=== PATIENT | male | born 1980 | race Caucasian/White ===

== ENCOUNTER 2019-09-24 17:28 | Inpatient (IN) | payer SELFPAY, OTHER ==
[~2019-09-24 17:28] MED LIST: Iopamidol-370 76% 500 ML 1 ML ONE
[2019-09-24] MEDS ORDERED: Ketamine 50 MG/ML (10ML VIAL) ONE (17:44)
[2019-09-24] MEDS ORDERED: Fentanyl 100 MCG/2 ML VIAL ONE ×2 (17:54→19:24)
[2019-09-24 18:04] LABS: #Basophils 0.1 thou/uL (0.0-0.2); #Eosinphils 1.6 thou/uL (0.0-0.7); #Lymphocytes 2.7 thou/uL (1.20-3.40); #Monocytes 0.7 thou/uL (0.11-0.59); #Neutrophils 9.9 thou/uL (1.40-6.50); %Basophils 0.6 % (0.0-1.0); %Eosinophils 10.8 % (0.0-10.0); %Lymphocytes 17.9 % (21.0-51.0); %Monocytes 4.5 % (0.0-10.0); %Neutrophils 66.2 % (42.0-75.0); Hemoglobin 15.6 g/dL (14.0-18.0); Mean Corpuscular HGB CONC 33.2 g/dL (32.0-36.0); Mean Corpuscular Hemoglobin 29.1 pg (27.0-31.0); Mean Corpuscular Volume 87.9 fL (78.0-98.0); Mean Platelet Volume 7.6 fL (7.4-10.4); Platelet Count 339 thou/uL (130-400); RBC Distribution Width 11.7 % (11.5-14.5); Red Blood Cell (RBC) Count 5.36 mill/uL (4.70-6.10); White Blood Cell (WBC) Count 14.9 thou/uL (4.8-10.8)
[2019-09-24 18:09] LABS: PTT 27.6 sec (22.9-36.1)
[2019-09-24 18:10] LABS: Prothrombin Time 12.8 sec (12.0-14.7)
[2019-09-24 18:15] LABS: ALT (SGPT) 26 U/L (8-55); AST (SGOT) 27 U/L (5-34); Albumin 4.4 g/dL (3.5-5.0); Alkaline Phosphatase 69 U/L (40-110); Anion Gap 13 mmol/L (10-20); BUN (Urea Nitrogen) 14 mg/dL (8.9-20.6); Bilirubin, Total 0.7 mg/dL (0.2-1.2); Calc. Creatinine Clearance 0 mL/min (70-130); Calcium 9.7 mg/dL (7.8-10.44); Carbon Dioxide 22 mmol/L (22-29); Chloride 105 mmol/L (98-107); Estimated GFR-MDRD 74; Glucose 108 mg/dL (70-105); Lipase 22 U/L (8-78); Protein, Total 7.4 g/dL (6.0-8.3); Sodium 136 mmol/L (136-145)
--- NOTE | 2019-09-24 18:19 | RAD ---
SINGLE VIEW OF THE CHEST: 09/24/19 COMPARISON: None. HISTORY: Shortness of breath and chest pain. FINDINGS: Single view of the chest shows a normal sized cardiomediastinal silhouette. There is no evidence of c onsolidation, mass, or pleural effusion. The bones are unremarkable. IMPRESSION: No evidence of acute cardiopulmonary disease. POS: EAA
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
[2019-09-24 18:29] LABS: Acetaminophen Less than 6.0 mcg/mL (10.0-30.0); Alcohol Less than 10 mg/dL (Less than 10); Salicylate Less than 8.0 mg/dL (15.0-30.0)
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
[2019-09-24] MEDS ORDERED: Adacel (T-DAP) 0.5 ML SYRINGE ONE (19:09)
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
--- NOTE | 2019-09-24 19:40 | RAD ---
Left wrist 3 views HISTORY: Injury. Findings extensively comminuted mildly impacted intra-articular fracture of the distal radius is pres ent with posterior displacement of the proximal carpal row in relation to the major distal radial fragments. Mildly distracted fracture of the ulnar styloid is also present. There are osteoarthritic changes at the first carpometacarpal joint. IMPRESSION : Extensive fracture posterior dislocation left wrist.
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
[2019-09-24] MEDS ORDERED: HYDROmorphone 0.5 MG/0.5 ML SYRINGE ONE (20:07)
[2019-09-24] MEDS ORDERED: Dextrose 5% in Water 1,000 ML IV PRN (21:18)
[2019-09-24] MEDS ORDERED: Morphine 4 MG/ML VIAL SLOW IVP PRN (21:18)
[2019-09-24] MEDS ORDERED: Ondansetron PF 4 MG/2 ML Vial IVP PRN (21:18)
[2019-09-24] MEDS ORDERED: Dextrose 50% Abboject 50 ML SYRINGE SLOW IVP PRN (21:18)
[2019-09-24] MEDS ORDERED: Cyclobenzaprine 10 MG TAB PO PRN (21:21)
--- NOTE | 2019-09-24 21:26 | RAD ---
Left wrist 3 views HISTORY: Fracture. COMPARISON: Earlier exam on the same date FINDINGS: Overlying fiberglass splint now in place. There has been partial reduction of the posterior dislocation at the wrist. Lateral displacement of the proximal carpal row in relation to the distal radius has increased, however. There is now 4 mm step-off and 4 mm gap at the dominant intra-a rticular fracture plane at the base of the radial styloid. Other findings are stable.
--- NOTE | 2019-09-24 22:22 | CT ---
CT left wrist noncontrast HISTORY: Fracture. FINDINGS: Extensively comminuted fracture of the distal radius is present including 2 major intra-art icular fracture. At the base of the radial styloid is an intra-articular plane with 0.7 cm gap and 0.2 cm step-off. Oblique nondisplaced fracture plane also extends to the posterior medial articular s urface. Small surrounding comminuted fracture fragments are present. Scaphoid waist is intact. There is mild displacement of a comminuted ulnar styloid avulsion fracture. Alignment of the proximal carpal row with the distal radius is now anatomic. IMPRESSION : Interval reduction of the dislocation at the wrist. Alignment of fracture planes improved significant ly since the most recent radiographic exam.
--- NOTE | 2019-09-24 22:23 | RAD ---
Left wrist 2 views HISTORY: Fracture/dislocation. COMPARISON: Earlier exam on the same date. FINDINGS: Alignment at the radiocarpal joint is now anatomic. Minimal displacement remains at the com minuted intra-articular distal radial fracture. Some degree of impaction and dorsal tilt remain. Overlying fiberglass splint remains in place. IMPRESSION : Interval reduction of the displacement/dislocation of the left wrist fracture.
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
[2019-09-25] MEDS: Acetaminophen 500 MG TAB PO SCH ×5 (01:30→23:57)
[2019-09-25] MEDS: Sodium Chloride 0.9% 1,000 ML IV SCH ×4 (01:32→20:45)
[2019-09-25] MEDS: traMADol HCl 50 MG TAB PO SCH ×2 (01:46→07:03)
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
[2019-09-25] MEDS ORDERED: traMADol HCl 50 MG TAB ONE (03:02)
[2019-09-25] MEDS ORDERED: Acetaminophen 500 MG TAB ONE (03:02)
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
[2019-09-25] MEDS ORDERED: Morphine 4 MG/ML VIAL ONE (06:41)
[2019-09-25 07:50] LABS: Anion Gap 10 mmol/L (10-20); BUN (Urea Nitrogen) 17 mg/dL (8.9-20.6); Calc. Creatinine Clearance 0 mL/min (70-130); Calcium 8.6 mg/dL (7.8-10.44); Carbon Dioxide 26 mmol/L (22-29); Chloride 106 mmol/L (98-107); Estimated GFR-MDRD 82; Glucose 118 mg/dL (70-105); Magnesium 2.1 mg/dL (1.6-2.6); Potassium 4.6 mmol/L (3.5-5.1); Sodium 137 mmol/L (136-145)
[2019-09-25 08:07] LABS: #Eosinphils 0.3 thou/uL (0.0-0.7); #Lymphocytes 2.4 thou/uL (1.20-3.40); #Monocytes 0.9 thou/uL (0.11-0.59); #Neutrophils 6.5 thou/uL (1.40-6.50); %Basophils 0.2 % (0.0-1.0); %Eosinophils 3.1 % (0.0-10.0); %Lymphocytes 23.3 % (21.0-51.0); %Neutrophils 64.4 % (42.0-75.0); Hemoglobin 11.1 g/dL (14.0-18.0); Mean Corpuscular HGB CONC 31.9 g/dL (32.0-36.0); Mean Corpuscular Hemoglobin 28.8 pg (27.0-31.0); Mean Corpuscular Volume 90.5 fL (78.0-98.0); Mean Platelet Volume 7.7 fL (7.4-10.4); Platelet Count 312 thou/uL (130-400); RBC Distribution Width 11.7 % (11.5-14.5); Red Blood Cell (RBC) Count 3.85 mill/uL (4.70-6.10); White Blood Cell (WBC) Count 10.2 thou/uL (4.8-10.8)
--- NOTE | 2019-09-25 08:58 | RAD ---
EXAM: 2 views of the left humerus HISTORY: left arm pain COMPARISON: None FINDINGS: 2 views of the left humerus shows a fracture of the midportion of the humerus which is mild ly displaced. No degenerative changes are seen. Mild soft tissue swelling is present. IMPRESSION: Mid left humeral fracture
[2019-09-25] MEDS: Famotidine/PF 20 mg/2ml Vial SLOW IVP SCH ×2 (09:25→20:39)
[2019-09-25] MEDS ORDERED: Famotidine/PF 20 mg/2ml Vial ONE (09:27)
[2019-09-25] MEDS ORDERED: Ondansetron PF 4 MG/2 ML Vial ONE (10:35)
[2019-09-25] MEDS ORDERED: diphenhydrAMINE 50 MG/ML VIAL IVP PRN (11:04)
[2019-09-25] MEDS ORDERED: HYDROmorphone 10 mg/100 ml CADD IVPB PRN (11:04)
[2019-09-25] MEDS ORDERED: diphenhydrAMINE 25 MG CAP PO PRN (11:04)
[2019-09-25] MEDS ORDERED: Promethazine HCl 25 MG/ML VIAL IM PRN (11:04)
[2019-09-25] MEDS ORDERED: Naloxone HCl 0.4 mg/ml Vial IV PRN (11:04)
[2019-09-25] MEDS ORDERED: Ondansetron PF 4 MG/2 ML Vial IVP PRN (11:04)
[2019-09-25] MEDS ORDERED: diphenhydrAMINE 50 MG/ML VIAL IM PRN (11:04)
[2019-09-25] MEDS ORDERED: Communication Order-Pharmacy FS SCH (11:15)
[2019-09-25] MEDS: Polyethylene Glycol 3350 17 GM Packet PO SCH (12:35)
[2019-09-25] MEDS: Gabapentin 300 MG CAP PO SCH ×3 (12:36→20:38)
[2019-09-25] MEDS: Senokot S 8.6-50 MG TAB PO SCH ×2 (12:37→20:39)
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
[2019-09-25 15:22] VITALS: BMI 29.1
[2019-09-25 23:24] LABS: Bacteria/HPF None Seen HPF (None Seen); Bilirubin Negative (Negative); Blood, Urine Trace (Negative); Clarity Clear (Clear); Glucose, Urine (Dipstick) Normal (Negative); Ketone, Urine Trace mg/dL (Negative); Leukocyte Negative Leu/uL (Negative); Nitrite Negative (Negative); Protein, Urine (Dipstick) 30 mg/dL (Neg-Trace); Squamous Epithelial None Seen HPF (0-3); Urobilinogen Normal mg/dL (Less than 2)
[2019-09-25 23:25] LABS: Specific Gravity, Urine 1.047 (1.002-1.036)
[2019-09-25 23:26] LABS: Urine Culture Reflex Yes Yes
[2019-09-25 23:28] LABS: Amphetamine Detected (NotDetected); Medtox Reader # READER 4; Methamphetamine Detected (NotDetected); Opiate Screen Detected (NotDetected)
[2019-09-25 23:29] LABS: Barbiturates Screen Not Detected (NotDetected); Benzodiazepine Screen Not Detected (NotDetected); Cocaine Metabolite Screen Not Detected (NotDetected); Medtox Control Line Valid? VALID (VALID); Methadone Not Detected (NotDetected); Oxycodone Screen Not Detected (NotDetected); Phencyclidine (PCP) Not Detected (NotDetected); THC/Cannabinoid Screen Not Detected (NotDetected); Tricyclic Screen Not Detected (NotDetected)
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
[2019-09-26] MEDS: Acetaminophen 500 MG TAB PO SCH ×4 (05:33→23:15)
[2019-09-26] MEDS: Sodium Chloride 0.9% 1,000 ML IV SCH ×2 (05:37→17:36)
[2019-09-26 05:50] LABS: #Basophils 0.1 thou/uL (0.0-0.2); #Eosinphils 1.3 thou/uL (0.0-0.7); #Monocytes 0.7 thou/uL (0.11-0.59); %Basophils 0.9 % (0.0-1.0); %Eosinophils 12.6 % (0.0-10.0); %Lymphocytes 20.3 % (21.0-51.0); %Monocytes 6.8 % (0.0-10.0); %Neutrophils 59.5 % (42.0-75.0); Mean Corpuscular HGB CONC 32.7 g/dL (32.0-36.0); Mean Corpuscular Hemoglobin 29.8 pg (27.0-31.0); Mean Corpuscular Volume 91.3 fL (78.0-98.0); Mean Platelet Volume 7.4 fL (7.4-10.4); Platelet Count 244 thou/uL (130-400); RBC Distribution Width 11.6 % (11.5-14.5)
[2019-09-26 06:20] LABS: Anion Gap 12 mmol/L (10-20); BUN (Urea Nitrogen) 15 mg/dL (8.9-20.6); Calc. Creatinine Clearance 159 mL/min (70-130); Carbon Dioxide 21 mmol/L (22-29); Chloride 106 mmol/L (98-107); Estimated GFR-MDRD Greater than 90; Glucose 120 mg/dL (70-105); Magnesium 1.8 mg/dL (1.6-2.6); Phosphorus 2.2 mg/dL (2.3-4.7); Potassium 4.3 mmol/L (3.5-5.1); Sodium 135 mmol/L (136-145)
[2019-09-26] MEDS ORDERED: Fentanyl 100 MCG/2 ML VIAL ONE ×3 (07:40→14:15)
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
[2019-09-26] MEDS ORDERED: Ketorolac Tromethamine 30 MG/ML VIAL ONE (09:52)
[2019-09-26] MEDS ORDERED: Glycopyrrolate 0.2 MG/ML 5 ML SYRINGE ONE (09:52)
[2019-09-26] MEDS ORDERED: PHENYLEPHRINE-NS 100 MCG/ML 10 ML SYRINGE ONE (09:52)
[2019-09-26] MEDS ORDERED: PROPOFOL 200 MG/20 ML VIAL ONE (09:52)
[2019-09-26] MEDS ORDERED: Lidocaine 1% PF 5 ML VIAL ONE (09:52)
[2019-09-26] MEDS ORDERED: Ondansetron PF 4 MG/2 ML Vial ONE (09:52)
[2019-09-26] MEDS ORDERED: Rocuronium Bromide 10 MG/ML (10ML VIAL) ONE (09:52)
[2019-09-26] MEDS: Polyethylene Glycol 3350 17 GM Packet PO SCH (10:49)
[2019-09-26] MEDS: Famotidine/PF 20 mg/2ml Vial SLOW IVP SCH ×2 (10:49→20:36)
[2019-09-26] MEDS: Gabapentin 300 MG CAP PO SCH ×3 (10:49→20:36)
[2019-09-26] MEDS: Senokot S 8.6-50 MG TAB PO SCH ×2 (10:50→20:36)
[2019-09-26] MEDS ORDERED: Bupivacaine HCl 0.5%/Epinephrine 1:200,000/PF 30 ml Vial ONE (12:09)
[2019-09-26] MEDS ORDERED: Bupivacaine PF 0.5% 30 ML VIAL ONE (12:11)
[2019-09-26 12:24] LABS: SARS-CoV-2 MS2 Positive; SARS-CoV-2 N Gene Negative; SARS-CoV-2 S Gene Negative; SARS-CoV-2 orf1ab Negative
[2019-09-26] MEDS ORDERED: Bacitracin Zinc Ointment 30 gm TUBE ONE (12:35)
--- NOTE | 2019-09-26 14:03 | RAD ---
EXAM: 2 views of the left humerus HISTORY: left arm pain COMPARISON: None FINDINGS/IMPRESSION: 2 views of the left humerus shows the patient is status post ORIF of the humerus fracture with a plate and screws. No perihardware lucency is seen.
--- NOTE | 2019-09-26 14:05 | RAD ---
EXAM: 2views of the left wrist HISTORY: Distal radius fracture COMPARISON: 09/24/2019 FINDINGS/IMPRESSION: 2 limited intraoperative fluoroscopic views of the left wrist shows the patient is status post screw fixation of the distal radius fracture. An ulnar styloid fracture is seen. There is normal alignment of the radiocarpal joint.
[2019-09-26] MEDS ORDERED: traMADol HCl 50 MG TAB PO PRN (15:11)
[2019-09-26] MEDS ORDERED: Milk Of Magnesia 30 ML UDCUP PO PRN (15:11)
[2019-09-26] MEDS ORDERED: Morphine 4 MG/ML VIAL SLOW IVP PRN (15:11)
[2019-09-26] MEDS ORDERED: Acetaminophen 325 MG TAB PO PRN (15:11)
[2019-09-26] MEDS ORDERED: HYDROcodone/Acetaminophen 10/325 mg Tablet PO PRN (15:11)
[2019-09-26] MEDS ORDERED: Promethazine HCl 25 MG/ML VIAL IM PRN (15:11)
[2019-09-26] MEDS ORDERED: Ondansetron PF 4 MG/2 ML Vial IV PRN (15:11)
[2019-09-26] MEDS ORDERED: Bisacodyl 10 MG SUPP PR PRN (15:11)
[2019-09-26] MEDS ORDERED: Ketorolac Tromethamine 30 MG/ML VIAL IVP PRN (15:13)
[2019-09-26] MEDS ORDERED: Meperidine HCl/PF 25 MG/ML VIAL IM PRN (15:13)
[2019-09-26] MEDS ORDERED: Labetalol HCl 100 MG/20 ML VIAL ONE (15:27)
[2019-09-26] MEDS ORDERED: Labetalol HCl 100 MG/20 ML VIAL IVPB SCH (15:45)
[2019-09-26] MEDS: Vancomycin HCl 1.75 GM in Sodium Chloride 0.9% 500 ML IVPB SCH (17:36)
[2019-09-26] MEDS: CEFAZOLIN 2 GM in Premix Bag 1 BAG IVPB SCH ×2 (17:36→23:15)
[2019-09-26] MEDS: hydrALAZINE 20 MG/ML VIAL SLOW IVP PRN (20:44)
[2019-09-26] MEDS ORDERED: Aspirin 81 mg Enteric Coated Tablet PO SCH (21:00)
[2019-09-26] MEDS ORDERED: Vancomycin 1 GM in Premix Bag 1 BAG IVPB SCH (21:00)
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
[2019-09-27] MEDS: Vancomycin HCl 1.75 GM in Sodium Chloride 0.9% 500 ML IVPB SCH ×2 (03:27→17:37)
[2019-09-27] MEDS: Acetaminophen 500 MG TAB PO SCH ×4 (05:28→23:16)
[2019-09-27 06:12] LABS: #Eosinphils 0.6 thou/uL (0.0-0.7); #Lymphocytes 1.7 thou/uL (1.20-3.40); #Monocytes 0.7 thou/uL (0.11-0.59); #Neutrophils 6.9 thou/uL (1.40-6.50); %Basophils 0.2 % (0.0-1.0); %Eosinophils 6.2 % (0.0-10.0); %Lymphocytes 17.3 % (21.0-51.0); %Monocytes 6.8 % (0.0-10.0); %Neutrophils 69.4 % (42.0-75.0); Hemoglobin 7.2 g/dL (14.0-18.0); Mean Corpuscular HGB CONC 32.7 g/dL (32.0-36.0); Mean Corpuscular Hemoglobin 29.8 pg (27.0-31.0); Mean Corpuscular Volume 91.1 fL (78.0-98.0); Mean Platelet Volume 7.3 fL (7.4-10.4); Platelet Count 231 thou/uL (130-400); RBC Distribution Width 11.6 % (11.5-14.5); Red Blood Cell (RBC) Count 2.41 mill/uL (4.70-6.10)
[2019-09-27 06:30] LABS: Anion Gap 9 mmol/L (10-20); BUN (Urea Nitrogen) 9 mg/dL (8.9-20.6); Calc. Creatinine Clearance 161 mL/min (70-130); Calcium 7.8 mg/dL (7.8-10.44); Carbon Dioxide 27 mmol/L (22-29); Chloride 102 mmol/L (98-107); Estimated GFR-MDRD Greater than 90; Glucose 136 mg/dL (70-105); Magnesium 1.8 mg/dL (1.6-2.6); Phosphorus 2.3 mg/dL (2.3-4.7); Potassium 3.9 mmol/L (3.5-5.1); Sodium 134 mmol/L (136-145)
[2019-09-27] MEDS ORDERED: Sodium Phosphate 30 MMOL in Sodium Chloride 0.9% 250 ML 250 ML IVPB SCH (07:15)
[2019-09-27] MEDS ORDERED: Magnesium 2 GM/50 ML 2 GM in Premix Bag 1 BAG IVPB SCH (07:15)
[2019-09-27] MEDS: Gabapentin 300 MG CAP PO SCH ×3 (08:00→20:38)
[2019-09-27] MEDS: Senokot S 8.6-50 MG TAB PO SCH ×2 (08:00→20:38)
[2019-09-27] MEDS: Famotidine/PF 20 mg/2ml Vial SLOW IVP SCH (08:00)
[2019-09-27] MEDS: Polyethylene Glycol 3350 17 GM Packet PO SCH (08:01)
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
[2019-09-27] MEDS: traMADol HCl 50 MG TAB PO SCH ×3 (12:12→23:16)
--- NOTE | 2019-09-27 12:34 | OP ---
DATE OF PROCEDURE: 09/26/2019 PREOPERATIVE DIAGNOSES: Displaced three-part distal radius fracture with half of the dorsal fragment involving the [place]'s tubercle and another displaced radial styloid fragment. 1. Some comminution with the dorsal fragment creating challenge for articular congruity. 2. Displaced ulnar radial styloid fracture. 3. No evidence of scapholunate ligament tear, clinically or radiographically. 4. Ulnar styloid fracture with type 1 with partial avulsion only. PROCEDURES PERFORMED: 1. Closed treatment of ulnar styloid fracture. 2. Open reduction and internal fixation of left distal radius fracture. 3. Open treatment of radiocarpal dislocation. 4. Bone graft, major. 5. C-arm supervision. TOURNIQUET TIME: 100 minutes. ESTIMATED BLOOD LOSS: 15 mL. FINDINGS: Three-part fracture with the dislocation already partially treated, but anatomically reduced now. DESCRIPTION OF PROCEDURE: After successful general endotracheal anesthesia and after Dr. Lynn performed ORIF of the humerus, the patient had a dressing applied to the arm, was re-prepped and draped and a sterile tourniquet was applied high in the forearm for this procedure. It was well padded. We then outlined the dorsal incision, which had a zigzag with a large zag towards the radial styloid knowing that it would need internal fixation. We then inflated the tourniquet after exsanguination of the limb, gave the patient 20 mL of 0.5% Marcaine along the incision area and proceeded. We entered the incision, carried through skin and subcutaneous tissue, identified the 2nd and 3rd dorsal compartments and the 4th and entered right over the [place]'s tubercle where we knew the fracture lines would be and carried it through skin and subcutaneous tissue to enter the retinaculum with a [place] blade, the retinaculum cover over the extensor pollicis longus as well as over the ECRL and ECRB. We then visualized the fracture. We irrigated and cleaned the area from this where we saw there was marked subcondylar comminution on a 1.5 cm wide from dorsal proximal to dorsal distal and 2 cm long dorsal fragment that fit right into the articular surface damage. Then, once we made best and provisionally fixed it with K-wires, we could see there was marked subchondral bone loss. We irrigated and cleaned this, and then we brought in a bone graft, cancellous chips. We crushed them, packed them in the area and then readjusted the joint line. It was anatomically held with 2 guidewires for 3.0 cannulated screws. We used a large Synthes 399.99 tenaculum clamp to reduce the radial styloid portion to anatomic position and close the fractured gap to the remaining portion of the radius from 3 mm to anatomic. There was some subchondral crushing and this was bone grafted as well. There was no step-off seen. We then irrigated the joint, irrigated the area. Packed the bone graft sufficiently under the dorsal fragment and then placed 2 guidewires in the styloid piece and a 3rd K-wire to maintain reduction from the clamp, removed the clamp. We used a standard drill measurement and screw technique to place 2 screws in appropriate position. I buried them 1 mm because we had to open the 1st dorsal compartment at its most dorsal edge and retract the tendons to do the drilling in the styloid fracture. The 2 screws were placed here and the wires removed to maintain anatomic position. We then placed 2 screws from dorsal to palmar and buried them 1 mm as well and compressed. This was without complication. Radiographs showed anatomic position of the distal radius fracture with small palmar fragment 3 mm that was not displaced. Also, the ulnar styloid fracture almost reduced completely, but since it was only a type 1, not involving the base or even the mid body of the ulnar styloid, we did not approach it openly. We continued the capsule incision 1 cm distal until we visualized the scapholunate ligament. It was not torn. We closed the joint capsule with a 3-0 Prolene in a running fashion. We released the tourniquet, obtained hemostasis. We then closed the retinaculum with interrupted 2-0 Vicryl in a [id number] pattern. We then closed subcutaneous with interrupted 4-0 Monocryl and the skin with interrupted 4-0 nylon in a mattress pattern. The patient left the operating room without evidence of anesthetic or operative complication. Job ID: [id number]
[2019-09-27] MEDS ORDERED: Amlodipine 5 MG TAB PO SCH (14:00)
[2019-09-27] MEDS ORDERED: TETANUS AND DIPHTHERIA TOX/PF 0.5 ML DISP.SYRIN IM SCH (15:15)
[2019-09-27] MEDS: hydrALAZINE 20 MG/ML VIAL SLOW IVP PRN (20:42)
[2019-09-27] MEDS: Cyclobenzaprine 10 MG TAB PO PRN (20:42)
[2019-09-28] MEDS: Vancomycin HCl 1.75 GM in Sodium Chloride 0.9% 500 ML IVPB SCH ×2 (04:59→16:55)
[2019-09-28] MEDS: traMADol HCl 50 MG TAB PO SCH ×4 (05:00→23:39)
[2019-09-28] MEDS: Acetaminophen 500 MG TAB PO SCH ×4 (05:00→23:38)
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
[2019-09-28 09:14] LABS: #Eosinphils 0.7 thou/uL (0.0-0.7); #Lymphocytes 1.2 thou/uL (1.20-3.40); #Monocytes 0.5 thou/uL (0.11-0.59); #Neutrophils 4.3 thou/uL (1.40-6.50); %Basophils 0.2 % (0.0-1.0); %Eosinophils 10.6 % (0.0-10.0); %Lymphocytes 17.5 % (21.0-51.0); %Neutrophils 64.7 % (42.0-75.0); Hemoglobin 6.2 g/dL (14.0-18.0); Mean Corpuscular HGB CONC 32.2 g/dL (32.0-36.0); Mean Corpuscular Hemoglobin 29.4 pg (27.0-31.0); Mean Corpuscular Volume 91.3 fL (78.0-98.0); Mean Platelet Volume 7.2 fL (7.4-10.4); Platelet Count 229 thou/uL (130-400); RBC Distribution Width 12.1 % (11.5-14.5); Red Blood Cell (RBC) Count 2.12 mill/uL (4.70-6.10); White Blood Cell (WBC) Count 6.7 thou/uL (4.8-10.8)
[2019-09-28 09:43] LABS: Anion Gap 10 mmol/L (10-20); BUN (Urea Nitrogen) 8 mg/dL (8.9-20.6); Calc. Creatinine Clearance 196 mL/min (70-130); Calcium 7.8 mg/dL (7.8-10.44); Carbon Dioxide 24 mmol/L (22-29); Chloride 103 mmol/L (98-107); Estimated GFR-MDRD Greater than 90; Glucose 123 mg/dL (70-105); Potassium 3.4 mmol/L (3.5-5.1); Sodium 134 mmol/L (136-145)
[2019-09-28] MEDS: Amlodipine 5 MG TAB PO SCH (11:05)
[2019-09-28] MEDS: Polyethylene Glycol 3350 17 GM Packet PO SCH (11:05)
[2019-09-28] MEDS: Gabapentin 300 MG CAP PO SCH ×3 (11:05→20:16)
[2019-09-28] MEDS: Senokot S 8.6-50 MG TAB PO SCH ×2 (11:05→20:16)
[2019-09-28] MEDS ORDERED: PHOS-NAK 1 PKT PACK PO SCH ×2 (13:00→14:00)
--- NOTE | 2019-09-28 13:58 | CT ---
CT ABDOMEN AND PELVIS WITH IV CONTRAST: INDICATION: Followup splenic injury. Dropping hemoglobin. COMPARISON: Comparison is made to CT chest, abdomen, and pelvis 09/24/2019. That exam revealed a grade splenic co ntusion and nonspecific ground-glass opacities in the lungs with nodular opacities noted. FINDINGS: Images through the lung bases today show a tiny left effusion and mild left bibasilar atelectasis. T he lungs otherwise appear well aerated in the lung bases. Review of the spleen today shows some heterogeneity in the posterior spleen at the site of the previo usly noted contusion. There has been significant improvement with no evidence of extension. There i s no evidence of capsular hematoma or free blood surrounding the spleen. The liver is unremarkable. Pancreas and kidneys unremarkable. Bowel loops unremarkable. Images through the pelvis unremarkable with a tiny amount of free fluid in the deep pelvis on the left. Aorta unremarkable. Review of soft tissues today reveals increasing subcutaneous haziness consistent with edema and injur y involving the lateral abdomen and extending inferiorly over the left ileum and left hip and into th e left thigh laterally and anteriorly. There is a more localized area of hematoma now seen involving the musculature of the left pelvis along the superior iliac wing. This appears to involve the anter ior aspect of the gluteus medius muscle. This focal area of hematoma measures up to 13 cm craniocaud al dimension and 6-7 cm AP dimension in the axial plane. IMPRESSION: 1. The splenic contusion is again seen with evidence of interval improvement. 2. Increasing edema and subcutaneous hemorrhage in the subcutaneous tissues of the lateral abdomen, hip, and left thigh as described above. A focal area of low attenuation consistent with a large rima eleazar in the musculature of the lateral upper pelvis is seen. This appears to involve the anterior po rtion of the gluteus medius and minimus muscle. POS: AH
[2019-09-28] MEDS ORDERED: Iopamidol-370 76% 500 ML 1 ML ONE (14:02)
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
[2019-09-29] MEDS: hydrALAZINE 20 MG/ML VIAL SLOW IVP PRN (05:00)
[2019-09-29] MEDS: Vancomycin HCl 1.75 GM in Sodium Chloride 0.9% 500 ML IVPB SCH (05:00)
[2019-09-29] MEDS: traMADol HCl 50 MG TAB PO SCH ×2 (05:01→12:18)
[2019-09-29] MEDS: Acetaminophen 500 MG TAB PO SCH (05:01)
[2019-09-29] MEDS: Cyclobenzaprine 10 MG TAB PO PRN ×2 (06:24→13:30)
[2019-09-29 06:42] LABS: #Eosinphils 1.1 thou/uL (0.0-0.7); #Lymphocytes 1.9 thou/uL (1.20-3.40); #Monocytes 0.4 thou/uL (0.11-0.59); #Neutrophils 3.1 thou/uL (1.40-6.50); %Basophils 0.6 % (0.0-1.0); %Eosinophils 16.6 % (0.0-10.0); %Lymphocytes 29.5 % (21.0-51.0); %Monocytes 6.1 % (0.0-10.0); %Neutrophils 47.2 % (42.0-75.0); Hemoglobin 7.1 g/dL (14.0-18.0); Mean Corpuscular HGB CONC 32.4 g/dL (32.0-36.0); Mean Corpuscular Volume 89.7 fL (78.0-98.0); Mean Platelet Volume 6.9 fL (7.4-10.4); Platelet Count 291 thou/uL (130-400); RBC Distribution Width 12.8 % (11.5-14.5); Red Blood Cell (RBC) Count 2.46 mill/uL (4.70-6.10); White Blood Cell (WBC) Count 6.6 thou/uL (4.8-10.8)
[2019-09-29 06:53] LABS: Anion Gap 12 mmol/L (10-20); BUN (Urea Nitrogen) 9 mg/dL (8.9-20.6); Calc. Creatinine Clearance 178 mL/min (70-130); Calcium 8.4 mg/dL (7.8-10.44); Carbon Dioxide 23 mmol/L (22-29); Chloride 104 mmol/L (98-107); Estimated GFR-MDRD Greater than 90; Glucose 103 mg/dL (70-105); Potassium 4.4 mmol/L (3.5-5.1); Sodium 135 mmol/L (136-145)
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
[2019-09-29] MEDS ORDERED: Ascorbic Acid 500 mg Chewable Tablet PO SCH (08:00)
[2019-09-29] MEDS ORDERED: Ferrous Sulfate 325 MG TAB PO SCH (08:00)
[2019-09-29] MEDS: Polyethylene Glycol 3350 17 GM Packet PO SCH (08:35)
[2019-09-29] MEDS: Acetaminophen/Codeine 30-300mg Tablet PO PRN ×2 (08:36→13:30)
[2019-09-29] MEDS: Gabapentin 300 MG CAP PO SCH (08:36)
[2019-09-29] MEDS: Amlodipine 5 MG TAB PO SCH (08:36)
[2019-09-29] MEDS: Senokot S 8.6-50 MG TAB PO SCH (08:36)
[2019-09-29] MEDS ORDERED: PHOS-NAK 1 PKT PACK PO SCH (09:00)
[2019-09-29] MEDS ORDERED: Amlodipine 5 MG TAB PO SCH (09:15)
[2019-09-29 11:40] VITALS: BP 181/69; TEMP 97.9
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
[2019-09-30] MEDS ORDERED: Amlodipine 10 MG TAB PO SCH (09:00)
== END 2019-09-29 14:45 | disposition home or self-care (01) | DRG 492 ==
LOC: ERS 17:28 → ERHOLD 21:22 → SURG A 09-25 14:42
PROVIDERS: ADMIT Surgery; ATTEND Surgery
PROC: 0PSJXZZ Reposition Left Radius, External Approach (ICD-10-PCS; 2019-09-24)
PROC: 0PSG04Z Reposition Left Humeral Shaft with Internal Fixation Device, Open Approach (ICD-10-PCS; principal; 2019-09-26)
PROC: 0PSLXZZ Reposition Left Ulna, External Approach (ICD-10-PCS; 2019-09-26)
PROC: 30233N1 Transfusion of Nonautologous Red Blood Cells into Peripheral Vein, Percutaneous Approach (ICD-10-PCS; 2019-09-28)
DX: S42.352A Displaced comminuted fracture of shaft of humerus, left arm, initial encounter for closed fracture (principal); S36.031A Moderate laceration of spleen, initial encounter; S52.512A Displaced fracture of left radial styloid process, initial encounter for closed fracture; S52.202A Unspecified fracture of shaft of left ulna, initial encounter for closed fracture; D62 Acute posthemorrhagic anemia; R40.2362 Coma scale, best motor response, obeys commands, at arrival to emergency department; R40.2142 Coma scale, eyes open, spontaneous, at arrival to emergency department; I10 Essential (primary) hypertension; R40.2252 Coma scale, best verbal response, oriented, at arrival to emergency department; S62.102A Fracture of unspecified carpal bone, left wrist, initial encounter for closed fracture; F19.10 Other psychoactive substance abuse, uncomplicated; F17.220 Nicotine dependence, chewing tobacco, uncomplicated; V99.XXXA Unspecified transport accident, initial encounter
CPT/HCPCS: 36415; 36430; 36600; 70450; 71045; 71260; 72125; 72170; 74177; 76000; 80048; 80053; 80306; 80307; 81001; 83605; 83690; 83735; 84100; 85025; 85610; 85730; 86850; 86900; 86901; 87086; 87635; 90715; 93005; C1713; G0390; J0360; J0670; J0690; J1170; J1885; J2270; J2405; J2704; J3010; J3370; J3475; J7030; J7050; P9016; Q9967; S0020; S0028; U0003